=== PATIENT | male | born 1945 | race Caucasian/White ===

== ENCOUNTER 2023-10-31 06:50 | Day surgery (SDC) | payer MEDICARE ==
[2023-10-21 12:51] VITALS: BP 166/88; PULSE 83; RESP 18
[2023-10-21 12:55] LABS: BASOPHILS # (AUTO) 0.06 K/uL (0.00-0.20); BASOPHILS % (AUTO) 1.1 % (0.0-5.0); EOSINOPHILS # (AUTO) 0.11 K/uL (0.00-0.70); IMMATURE GRANULOCYTE ABSOLUTE 0.02 K/uL (0-1); LYMPHOCYTES # (AUTO) 1.8 K/uL (1.0-4.8); LYMPHOCYTES % (AUTO) 32.2 % (21.0-51.0); MEAN CORPUSCULAR HEMOGLOBIN 31.9 pg (27.0-33.0); MEAN CORPUSCULAR HGB CONC 33.9 g/dL (32.0-36.0); MONOCYTES # (AUTO) 0.7 K/uL (0.1-1.0); MONOCYTES % (AUTO) 11.9 % (3.0-13.0); NEUTROPHILS # (AUTO) 2.9 K/uL (1.8-7.7); NEUTROPHILS % (AUTO) 52.4 % (40.0-77.0); PLATELET COUNT (AUTO) 213 K/uL (130-400); RED BLOOD CELL COUNT(AUTO) 5.21 MIL/uL (4.50-6.20); RED CELL DISTRIBUTION WIDTH 12.2 % (11.0-15.5); WHITE BLOOD COUNT (AUTO) 5.4 K/uL (4.8-10.8)
[2023-10-21 13:00] LABS: APPEARANCE,URINE CLOUDY (CLEAR); BILIRUBIN,URINE NEGATIVE (NEGATIVE); COLOR,URINE YELLOW (YELLOW); GLUCOSE, URINE (UA) NEGATIVE (NEGATIVE); KETONES,URINE NEGATIVE (NEGATIVE); LEUKOCYTE ESTERASE ,URINE 250 Leu/uL (NEGATIVE); NITRATE,URINE 2+ (NEGATIVE); OCCULT BLOOD,URINE NEGATIVE (NEGATIVE); PROTEIN,URINE NEGATIVE (NEGATIVE); UROBILINOGEN,URINE 0.2 mg/dL (0.2-1.0)
[2023-10-21 13:06] LABS: CREATININE 1.1 mg/dL (0.5-1.5); POTASSIUM 4.7 mmol/L (3.5-5.1)
[2023-10-21 13:13] LABS: ADD UA MICROSCOPIC YES
[2023-10-21 13:19] LABS: BACTERIA,URINE MANY /HPF (None Seen); MUCUS,URINE RARE LPF (None Seen)
[2023-10-31] VITALS (10 sets, daily range): BP systolic 142–162; BP diastolic 74–98; PULSE 71–89; RESP 12–16
[~2023-10-31] VITALS: Ht 162.6 cm; Wt 73.9 kg
[~2023-10-31 06:50] MED LIST: FINA5TAB41 PO
[2023-10-31] MEDS ORDERED: GENTAMICIN 80 MG/NS 100 ML PB 100 ML IV ONE (07:06)
[2023-10-31] MEDS ORDERED: CEFTRIAXONE 1G VIAL ONE (07:06)
[2023-10-31] MEDS ORDERED: LACTATED RINGERS 1000ML 1,000 ML IV ONE (07:06)
[2023-10-31] MEDS ORDERED: LEVO-70 PO (07:17)
[2023-10-31] MEDS ORDERED: LIDOCAINE PF 100MG/5ML (2%) SYRINGE 5ML ONE (08:28)
[2023-10-31] MEDS ORDERED: PROPOFOL 10 MG/ML 20ML VIAL IV ONE (08:29)
[2023-10-31] MEDS ORDERED: MIDAZOLAM HCL 1 MG/ML 2ML VIAL ONE (08:33)
[2023-10-31] MEDS ORDERED: CEFAZOLIN SODIUM 2 GM VIAL IVPB ONE (08:36)
== END 2023-10-31 10:20 | disposition home or self-care (01) ==
LOC: DAH 06:50
PROVIDERS: ATTEND Urology
DX: R97.20 Elevated prostate specific antigen [PSA] (principal); N41.1 Chronic prostatitis; N40.0 Benign prostatic hyperplasia without lower urinary tract symptoms; Z79.899 Other long term (current) drug therapy; Z79.01 Long term (current) use of anticoagulants; Z98.890 Other specified postprocedural states
CPT/HCPCS: 80048; 85025; 87077; 87088; 87186; 81001; 36415; 71045; 93005; 55700; 88305; 76872; 76942; A6260; J7120 ×2; J2001; J0696; J2250; J2704; J1580; J0690; A4215 ×2; A4649; A4223; A4222; A4221; A4663; A4600; J3490